=== PATIENT | male | born 1995 | race Caucasian/White ===

== ENCOUNTER 2022-09-29 09:04 | Emergency (ER) | payer SELFPAY ==
[~2022-09-29] VITALS: Ht 177.8 cm; Wt 147.0 kg
[2022-09-29 09:18] VITALS: BP 152/93
--- NOTE | 2022-09-29 09:21 | NUR ---
27 Y/O MALE, C/O CLOUDY, BLURRY VISION IN LEFT EYE FOR 6 DAYS. DENIES INJURY OR TRAUMA TO LEFT EYE OR HEAD. DENIES CONTACTS, WEARS GLASSES, NEARSIGHTED. STATES HE HAS A BURNING SENSATION 6/10 AT THIS TIME. PMH: DENIES [facility] MED: DENIES
--- NOTE | 2022-09-29 09:23 | NUR ---
BOTH EYES: 20/20 LEFT EYE: 20/50 RIGHT EYE: 20/25 CORRECTED WITH GLASSES
[2022-09-29] MEDS ORDERED: TETRACAINE HCL/PF 0.5% OPTH 4 ML BTL OP ONE (10:10)
[2022-09-29] MEDS ORDERED: FLUORESCEIN OPTH STRIP 1 MG OP ONE (10:10)
--- NOTE | 2022-09-29 10:23 | NUR ---
PT AMBULATED TO BED 12
--- NOTE | 2022-09-29 10:23 | NUR ---
EYE SET UP IN ROOM AT THIS TIME
[2022-09-29] MEDS ORDERED: OFLOS LEFT EYE (10:38)
[2022-09-29 10:52] VITALS: BP 152/93
--- NOTE | 2022-09-29 10:52 | NUR ---
Patient discharged with v/s stable. Written and verbal after care instructions given and explained. Patient alert, oriented and verbalized understanding of instructions. Ambulatory with steady gait. All questions addressed prior to discharge. ID band removed. Patient advised to follow up with PMD. Rx of OFLOXACIN given. Patient educated on indication of medication including possible reaction and side effects. Opportunity to ask questions provided and answered.
== END 2022-09-29 10:52 | disposition home or self-care (01) ==
LOC: MED 09:04
DX: S05.02XA Injury of conjunctiva and corneal abrasion without foreign body, left eye, initial encounter (principal); X58.XXXA Exposure to other specified factors, initial encounter; Y93.89 Activity, other specified; Y92.89 Other specified places as the place of occurrence of the external cause; Y99.8 Other external cause status
CPT/HCPCS: 99283